=== PATIENT | female | born 2000 | race Caucasian/White ===

== ENCOUNTER 2019-05-16 15:29 | Emergency (ER) | payer MEDICAID ==
[~2019-05-16] VITALS: Ht 165.1 cm; Wt 81.6 kg
[2019-05-16 15:34] VITALS: BP 130/83
[2019-05-16 16:06] VITALS: BP 127/81
== END 2019-05-16 16:06 | disposition home or self-care (01) ==
LOC: MED 15:29
DX: F32.9 Major depressive disorder, single episode, unspecified (principal); Z76.0 Encounter for issue of repeat prescription; Z88.8 Allergy status to other drugs, medicaments and biological substances
CPT/HCPCS: 99281; 99283